=== PATIENT | male | born 1945 ===

== ENCOUNTER 2017-11-06 10:02 | Outpatient (CLI) | payer OTHER ==
[~2017-11-06 10:02] MED LIST: BACTROBAN OINT22 GM TP; CEFADROXIL500 MG PO; CIPRO500 MG PO; COZAAR50 MG PO; NOVOLIN 70/30 V10 ML SQ; NOVOLIN R SQ; PLAVIX75 MG PO; PROTONIX40 MG PO; ZANTAC300 MG PO; ZOFRAN4 MG PO
== END 2017-11-06 14:18 | disposition home or self-care (01) ==
LOC: LAB 10:02
DX: E11.3313 Type 2 diabetes mellitus with moderate nonproliferative diabetic retinopathy with macular edema, bilateral (principal); H43.12 Vitreous hemorrhage, left eye; C61 Malignant neoplasm of prostate